=== PATIENT | male | born 1950 | race Caucasian/White ===

== ENCOUNTER 2018-03-20 03:27 | Emergency (ER) | payer MEDICARE, OTHER ==
[~2018-03-20] VITALS: Ht 177.8 cm; Wt 67.6 kg
[2018-03-20] MEDS ORDERED: LISINOPRIL2.5 MG (03:35)
[2018-03-20] MEDS ORDERED: CARVEDILOL12.5 MG (03:37)
[2018-03-20] MEDS ORDERED: COUMADIN 4 MG TA4 M1 (03:38)
[2018-03-20 04:10] LABS: ABSOLUTE EOSINOPHILS 0.1 thou/uL (0.0-0.7); ABSOLUTE MONOCYTES 0.7 thou/uL (0.0-1.2); ABSOLUTE NEUTROPHILS 2.5 thou/uL (1.6-8.1); BASOPHILS 0.6 %; EOSINOPHILS 1.4 %; HEMATOCRIT 39.8 % (42.0-52.0); HEMOGLOBIN 13.3 gm/dL (14.0-18.0); LYMPHOCYTES 23.8 %; MCH 30.1 pg (26.0-34.0); MCHC 33.3 g/dL (28.0-37.0); MCV 90.6 fL (80.0-100.0); MONOCYTES 16.1 %; MPV 7.8 fl. (7.2-11.1); NUCLEATED RBCS 0 /100WBC; PLATELET COUNT* 189 thou/uL (150-400); POLYS 58.1 %; RDW-CV 16.4 % (10.5-14.5); WBC 4.2 thou/uL (4.0-11.0)
[2018-03-20 04:30] LABS: INR 2.2; PROTIME 20.8 Seconds (9.20-11.50)
[2018-03-20 04:37] LABS: HCO3 28.9 mmol/L (22.0-26.0); PCO2 49.3 mmHg (35.0-45.0); PO2 67.4 mmHg (75.0-100.0); pH 7.386 (7.340-7.450)
[2018-03-20 04:47] LABS: ANION GAP 5 mmol/L (7-16); BUN 11 mg/dL (7-18); CALCIUM 8.6 mg/dL (8.5-10.1); CHLORIDE 100 mmol/L (98-107); CO2 33 mmol/L (21-32); CREATININE 0.7 mg/dL (0.6-1.3); GLUCOSE 122 mg/dL (70-99); POTASSIUM 3.8 mmol/L (3.5-5.1); SODIUM 138 mmol/L (136-145)
[2018-03-20 04:59] LABS: ALBUMIN 3.5 g/dL (3.4-5.0); ALKALINE PHOSPHATASE 50 U/L (46-116); MAGNESIUM 1.9 mg/dL (1.8-2.4); NT-PRO BRAIN NAT PEPTIDE 776 pg/mL (<300); SGOT 34 U/L (15-37); SGPT 28 U/L (30-65); TOTAL BILIRUBIN 0.6 mg/dL (<0.1-1.0); TOTAL PROTEIN 6.9 g/dL (6.4-8.2); TROPONIN-I LEVEL <0.06 ng/mL (<0.06)
[2018-03-20 05:36] LABS: URINE BLOOD TRACE (Negative); URINE CLARITY CLEAR; URINE COLOR YELLOW; URINE GLUCOSE-RANDOM NEGATIVE (Negative); URINE KETONES TRACE (Negative); URINE LEUKOCYTES-REFLEX NEGATIVE (Negative); URINE NITRITE-REFLEX NEGATIVE (Negative); URINE PROTEIN TRACE (Negative); URINE SPECIFIC GRAVITY >= 1.030 (1.005-1.030); URINE UROBILINOGEN 0.2 E.U./dl (0.2-1.0)
[2018-03-20 05:40] LABS: ICTOTEST (BILI CONFIRMATORY) Negative (Negative); URINE BILIRUBIN 1+ (Negative)
[2018-03-20] MEDS ORDERED: PROAIR HFA8.5 GM PO (06:56)
[2018-03-20] MEDS ORDERED: PREDNISONE 20 M20 MG PO (06:56)
[2018-03-20 07:05] VITALS: BP 107/73
--- NOTE | 2018-03-21 12:40 | EKG ---
[place] [address] ELECTROCARDIOGRAM REPORT Name: BRIGITTE APPIAH Room: 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: : 1950 Requested By: Jasmin Lay Order Number: [id number] MD: Fredy Rebolledo Measurements Intervals [place] Rate: 116 P: 72 [place]: 160 QRS: -25 QRSD: 106 T: 89 QT: 348 QTc: 484 Interpretive Statements Sinus tachycardia poor r wave progression Multiform ventricular premature complexes Borderline left axis deviation Nonspecific repol abnormality, lateral leads Baseline wander in lead(s) V3 No previous ECG available for comparison Electronically Signed On 03-21-2018 12:40:20 CDT by Fredy Rebolledo [email or web address] <ELECTRONICALLY SIGNED> By: Fredy Rebolledo MD, [facility] 03/21/18 1240 0340 0340 Fredy Rebolledo MD, [facility] /EPI
== END 2018-03-20 07:05 | disposition home or self-care (01) ==
LOC: M.ERS 03:27
PROVIDERS: Personal Emergency Response Attendant
DX: J44.1 Chronic obstructive pulmonary disease with (acute) exacerbation (principal); I50.9 Heart failure, unspecified